=== PATIENT | female | born 1935 | race Caucasian/White ===

== ENCOUNTER → 2019-09-10 | Outpatient (CLI) | payer MEDICARE ==
[~2019-09-10] MED LIST: (None)200 MCG PO; 5-Htp50 MG; ASCO500 PO; ASPI325EC PO; ASPI81CH; ASPI81CH PO; CHELATED MAGNESIUM PO; Chromium Pico200 MCG PO; FISH OIL 1,0001 EAC1 PO; GABA100; Glycotrol Caps1 EACH; Hair, Skin & N1 EACH PO; KETO DHEA; KETO DHEA PO; L-TYROSINE; L-TYROSINE500 MG PO; LEVSOD125; LOSA50; LOSA50 PO; MECL25; METTREX2.5 PO; OCCUVITE PO; Percocet 5-3251 EACH PO; SAME200 MG PO; THYROID PO; TURMERIC PO; TYROSINE PO; [UNRECOGNIZED DRUG - CODE] PO; [UNRECOGNIZED DRUG - MIXTURE] SL; [UNRECOGNIZED DRUG - OTHER]; [UNRECOGNIZED DRUG - OTHER] PO; [UNRECOGNIZED DRUG - OTHER] PO; [UNRECOGNIZED DRUG - OTHER] PO; [UNRECOGNIZED DRUG - OTHER] PO
== END | disposition home or self-care (01) ==
LOC: LAB SHORT 15:49 → PLD 15:49
DX: L57.0 Actinic keratosis (principal)
CPT/HCPCS: 88305

== ENCOUNTER 2020-05-03 11:23 | Day surgery (SDC) | payer MEDICARE ==
[~2020-05-03] VITALS: Ht 160 cm; Wt 66.4 kg
[~2020-05-03 11:23] MED LIST changes: +Aspir 8181 MG PO; +BIJUVA 1 MG-101 EAC1 PO; +DHEA MICRONIZED5 GM; +EUTHYROX125 MCG PO; +FISH OIL 1,2001 EAC7 PO; +HYOS0.375T PO; +L-TYROSINE PO; +MECL25 PO; +MULTIVITAMINS1 EAC3 PO; +OLME20 PO; +Ocuvite Preser1 EACH PO; +VITAMIN B125000 MC1 PO; +[UNRECOGNIZED DRUG - CODE]
--- NOTE | 2020-05-03 14:51 | NUR ---
05/03/20 1451 Mela Rios ASSUMED CARE OF PATIENT FROM [facility] AT 1445 PT C/O PAIN RATED AT 09/29. VSS. NO C/O NAUSEA. WILL MEDICATE PER ORDERS. WILL CONTINUE TO MONITOR.
--- NOTE | 2020-05-03 15:55 | NUR ---
05/03/20 1555 Alea Cannon, [facility], IN ROOM.
== END 2020-05-03 15:27 | disposition home or self-care (01) ==
LOC: ORSCSDS 11:23
PROVIDERS: Podiatrist Foot & Ankle Surgery
PROC: 0QBH4ZZ Excision of Left Tibia, Percutaneous Endoscopic Approach (ICD-10-PCS; principal; 2020-05-03 12:30)
DX: M93.272 Osteochondritis dissecans, left ankle and joints of left foot (principal); I10 Essential (primary) hypertension; N18.9 Chronic kidney disease, unspecified; K21.9 Gastro-esophageal reflux disease without esophagitis; E03.9 Hypothyroidism, unspecified; Z79.899 Other long term (current) drug therapy; Z79.82 Long term (current) use of aspirin
CPT/HCPCS: A9270; C1713; J0171; J0690; J1100; J2370; J2405; J2704; J3010; J7120

== ENCOUNTER → 2023-05-16 | Outpatient (CLI) | payer OTHER | LOC: PLD 11:54 → LAB SHORT 11:54 → LAB 11:54 | DX: D48.5 Neoplasm of uncertain behavior of skin (principal) | CPT/HCPCS: 88305 ==